=== PATIENT | male | born 1975 | race African-American/Black ===

== ENCOUNTER → 2021-04-15 | Day surgery (SDC) | payer OTHER ==
[~2021-04-15] VITALS: Ht 185.4 cm; Wt 99.8 kg
[~2021-04-15] MED LIST: ACETAMINOPHEN500 M1 PO; BUSPIRONE HCL15 M1 PO; COLACE100 MG PO; FLUOXETINE HCL20 MG PO; MOTRIN600 MG PO; OXY-IR 5MG5 MG PO; PRAZOSIN HCL1 MG PO
[2021-04-15 08:28] LABS: BUN/CREAT RATIO (CALC) 16.1 RATIO; CREATININE 0.93 mg/dL (0.67-1.17); POTASSIUM 4.1 mmol/L (3.5-5.1)
== END | disposition home or self-care (01) ==
LOC: FAS 07:36
PROVIDERS: Anesthesiology
DX: K42.0 Umbilical hernia with obstruction, without gangrene (principal); E78.5 Hyperlipidemia, unspecified; N40.0 Benign prostatic hyperplasia without lower urinary tract symptoms; Z79.899 Other long term (current) drug therapy
CPT/HCPCS: 36415; 80048; 93005; J0690; J1100; J1170; J1644; J1885; J2250; J2405; J2704; J2710; J3010; J7120